=== PATIENT | female | born 1950 | race Two or more races ===

== ENCOUNTER → 2017-04-04 | Outpatient (CLI) | payer MEDICAID | LOC: FIMAGING 11:37 | PROVIDERS: ATTEND Internal Medicine | DX: R05 Cough (principal); R53.83 Other fatigue; E78.5 Hyperlipidemia, unspecified; E66.9 Obesity, unspecified; M81.8 Other osteoporosis without current pathological fracture ==

== ENCOUNTER → 2018-01-15 | Outpatient (CLI) | payer MEDICAID | LOC: FIMAGING 16:47 | PROVIDERS: ATTEND Internal Medicine | DX: M75.31 Calcific tendinitis of right shoulder (principal); M25.811 Other specified joint disorders, right shoulder ==